=== PATIENT | female | born 1965 | race Caucasian/White ===

== ENCOUNTER 2022-05-30 11:49 | Emergency (ER) | payer OTHER, MEDICARE ==
[~2022-05-30 11:49] MED LIST: ALLOPURINOL100 MG PO; ATORVASTATIN CA10 MG PO; BROVANA15 MCG/2 M INH; CETIRIZINE HCL10 MG PO; ELAVIL 10 MG TA10 MG PO; GLUCOPHAGE 500500 MG PO; LEVOTHYROXINE125 MCG PO; MONTELUKAST SOD10 MG PO; PERCOCET 5-3251 EACH PO; VITAMIN D PO; [UNRECOGNIZED DRUG - OTHER] INH
[2022-05-30 12:55] LABS: HEMOGLOBIN 10.8 gm/dl (12.3-15.3); RED BLOOD COUNT 3.5 M/UL (4.00-5.10); WHITE BLOOD COUNT 13.3 K/UL (4.5-11.0)
== END 2022-05-30 15:50 | disposition short-term general hospital (02) ==
LOC: ER1 11:49
PROVIDERS: Physician Assistant Medical
DX: S06.0X9A Concussion with loss of consciousness of unspecified duration, initial encounter (principal); S12.600A Unspecified displaced fracture of seventh cervical vertebra, initial encounter for closed fracture; S32.029A Unspecified fracture of second lumbar vertebra, initial encounter for closed fracture; S22.049A Unspecified fracture of fourth thoracic vertebra, initial encounter for closed fracture; S27.2XXA Traumatic hemopneumothorax, initial encounter; T79.4XXA Traumatic shock, initial encounter; J45.909 Unspecified asthma, uncomplicated; H91.90 Unspecified hearing loss, unspecified ear; V43.62XA Car passenger injured in collision with other type car in traffic accident, initial encounter; Y92.410 Unspecified street and highway as the place of occurrence of the external cause
CPT/HCPCS: 70450; 71045; 71260; 72125; 72128; 72131; 72170; 73562; 80053; 80307; 82550; 82553; 82962; 83605; 84484; 85025; 85610; 85730; 86850; 86900; 86901; 86920; 93005; 96374; 99285; G0480; J2405; J3010; P9016; Q9967